=== PATIENT | female | born 1955 | race Caucasian/White ===

== ENCOUNTER 2021-06-03 12:07 | Emergency (ER) | payer BC ==
--- NOTE | 2021-06-03 12:50 | EDM.PDOC ---
ED HPI GENERAL MEDICAL PROBLEM - General Chief Complaint: Skin Complaint Stated Complaint: RASH ON FOREHEAD Time Seen by Provider: 06/03/21 12:50 Source of Information: Reports: Patient History Limitations: Reports: No Limitations - History of Present Illness INITIAL COMMENTS - FREE TEXT/NARRATIVE: Zelalem is a 66 year old female whom reports rash on forehead, left face, cheek and neck which she noted this am upon awakening. Zelalem has no known exposures to outside environment outside of ordinary activity. reported may have had poison tere on his clothing in the laundry. Zelalem was concerned about possible, shingles as the last time she thought was poison tere. Rash itches without change in person use of lotions, soaps or perfumes. - Related Data Allergies Allergy/AdvReac Type Severity Reaction Status Date / Time No Known Allergies Allergy Verified 06/03/21 12:45 Home Meds: Home Meds Biotin 5,000 mcg PO DAILY 06/03/21 [History] Lacosamide [Vimpat] 200 mg PO TID 06/03/21 [History] Multivit-Min/Iron/Folic/Lutein [Centrum Silver Women Tablet] 1 tab PO DAILY 06/03/21 [History] Mv-Mn/Iron/Folic Acid/Herb 190 [Vitamin D3 Complete Caplet] 1 tab PO DAILY 06/03/21 [History] Descanso 3,6,9 Combination No.7 [Descanso Dha] 1 tab PO DAILY 06/03/21 [History] amLODIPine [Norvasc] 10 mg PO DAILY 06/03/21 [History] lisinopriL [Lisinopril] 10 mg PO DAILY 06/03/21 [History] ED ROS GENERAL - Review of Systems Review Of Systems: Comprehensive ROS is negative, except as noted in HPI. ED EXAM, SKIN/RASH Exam: See Below Exam Limited By: No Limitations General Appearance: Alert, WD/WN, No Apparent Distress Eye Exam: Bilateral Eye: Normal Inspection Ears: Normal External Exam, Hearing Grossly Normal Nose: Normal Inspection Throat/Mouth: Normal Voice, No Airway Compromise Head: Other (wheal and flare lesions on forehead, left face and cheek ) Neck: Normal Inspection, Other (wheal and flare linear reaction right and left posterior neck ) Respiratory/Chest: No Respiratory Distress, Normal Breath Sounds Cardiovascular: Normal Peripheral Pulses, Regular Rate, Rhythm Extremities: Normal Inspection, Normal Range of Motion Neurological: Alert, Oriented, CN II-XII Intact, Normal Cognition Psychiatric: Normal Affect, Normal Mood Skin: Warm, Dry, Intact, Normal Color, No Rash Location, Skin: Face (wheal and flare reaction noted, consistent with contact dermatitis), Neck (wheal and flare reaction noted, consistent with contact dermatitis) Course - Vital Signs Last Recorded V/S: Last Vital Signs Temp 36.4 C 06/03/21 12:53 Pulse 85 06/03/21 12:53 Resp 17 06/03/21 12:53 BP 99/75 06/03/21 12:53 Pulse Ox 94 L 06/03/21 12:53 Departure - Departure Time of Disposition: 13:14 Disposition: Home, Self-Care 01 Clinical Impression: Contact dermatitis - Discharge Information Instructions: Poison Tere Dermatitis, Rash, Adult, Poison [place] Dermatitis, Contact Dermatitis Referrals: PCP,None [Primary Care Provider] - Forms: ED Department Discharge Additional Instructions: 1. Wash all exposed clothing in hot water to decrease the oil form the poison Tere plant. Exposure to oil on clothing with increase then rash if in contact with skin again (even over a year later and clothing has not been washed. 2. Topical Tecnu lotion to affected area to remove oil for plant/clothing (as soon after exposure as possible). Cleanse with Tecnu scrub with cool water to affected area to remove oil from skin and prevent reaction. Prevention of rash is [place] after exposure. 3. Topical Hydrocortisone 2-3 times per day for itching and rash. Topical Benadryl as needed fro additional itching. 5. Consider Zanfel OTC (poison tere) cream to help with itch or IvyRest soap to remove oil from clothing and skin. 6. Aveno Oatmeal bath, calamine lotion to help dry out lesions. Avoid hot water which will open skin pores and allow poison tere to spread more easily. Do not reuse cloth to wash face or body after initial cleansing to avoid re- exposure. 7. Clean skin with warm shower to removal all oil or resin from the skin. 8. See PCP in 5-7 days recheck sooner if worsen symptom. May consider oral steroid if rash causes swelling around eyes or increased in symptoms. 9. Return for repeat evaluation if increase, changes, new or worsen symptoms. Sepsis Event Note (ED) - Focused Exam Vital Signs: Vital Signs Temp Pulse Resp BP Pulse Ox 06/03/21 12:53 36.4 C 85 17 99/75 94 L 06/03/21 12:41 36.4 C 85 17 99/75 94 L
== END 2021-06-03 13:20 | disposition home or self-care (01) ==
LOC: JP.ED 12:07
DX: L25.9 Unspecified contact dermatitis, unspecified cause (principal); Z79.899 Other long term (current) drug therapy
CPT/HCPCS: 99282